=== PATIENT | female | born 1990 | race Caucasian/White ===

== ENCOUNTER 2021-08-10 22:16 | Inpatient (IN) | payer OTHER ==
[~2021-08-10] VITALS: Ht 162.6 cm; Wt 147.4 kg
[2021-08-10 23:48] VITALS: BP 96/63
[2021-08-11] VITALS (13 sets, daily range): BP systolic 94–129; BP diastolic 46–91
[2021-08-11 00:36] LABS: HEMATOCRIT 39.8 % (37.0-47.0); MEAN CELL VOLUME 81.6 fl (81.0-99.0); MEAN CORPUSCULAR HGB 25.2 pg (27.0-31.0); MEAN CORPUSCULAR HGB CONC 30.9 g/dl (33.0-37.0); MEAN PLATELET VOLUME 10.1 fl (9.6-12.3); PLATELET COUNT AUTOMATED 246 10*3/uL (130-400); RED BLOOD COUNT 4.88 10*6/uL (4.10-5.10); RED CELL DISTRI WIDTH 13.9 % (0-14.5); WHITE BLOOD COUNT 6.1 10*3/uL (4.8-10.8)
[2021-08-11 00:51] LABS: ALBUMIN 2.4 gm/dl (3.1-4.5); ALKALINE PHOSPHATASE 97 U/L (45-117); BUN 12 mg/dl (7-24); CHLORIDE 101 mmol/L (98-107); CREATININE 0.68 mg/dL (0.55-1.02); POTASSIUM 3.5 mmol/L (3.5-5.1); SGOT/AST 82 IU/L (3-35); SGPT/ALT 98 U/L (12-78); SODIUM 136 mmol/L (136-145); TOTAL PROTEIN 6.9 gm/dL (6.4-8.2)
[2021-08-11 01:06] LABS: ATYPICAL LYMPHS 2 % (0-0); BURR CELLS FEW; PLATELET SUFFICIENCY NORMAL (NORMAL); TOTAL CELLS COUNTED 100 #CELLS
[2021-08-11 02:52] LABS: ABG BASE EXCESS 7.3 mmol/L (-2.0-2.0); ARTERIAL BLOOD GAS PH 7.496 (7.35-7.45); ARTERIAL BLOOD GAS PO2 71.1 (80-90)
[2021-08-11 05:50] LABS: ALBUMIN 2.3 gm/dl (3.1-4.5); BUN 12 mg/dl (7-24); CHLORIDE 101 mmol/L (98-107); CHOLESTEROL 71 mg/dL (<200); CREATININE 0.64 mg/dL (0.55-1.02); POTASSIUM 3.5 mmol/L (3.5-5.1); SGOT/AST 71 IU/L (3-35); SGPT/ALT 96 U/L (12-78); SODIUM 136 mmol/L (136-145); TRIGLYCERIDES 65 mg/dl (<150)
[2021-08-11 05:52] LABS: ALKALINE PHOSPHATASE 95 U/L (45-117); TOTAL PROTEIN 6.8 gm/dL (6.4-8.2)
[2021-08-11 05:58] LABS: LDL CHOLESTEROL 21 mg/dL (9-159); THYROID STIM HORMONE (HS) 0.188 uIU/ml (0.358-4.75)
[2021-08-11 06:05] LABS: MEAN CELL VOLUME 81.4 fl (81.0-99.0); MEAN CORPUSCULAR HGB 25.5 pg (27.0-31.0); MEAN CORPUSCULAR HGB CONC 31.3 g/dl (33.0-37.0); MEAN PLATELET VOLUME 10.6 fl (9.6-12.3); PLATELET COUNT AUTOMATED 233 10*3/uL (130-400); RED BLOOD COUNT 4.79 10*6/uL (4.10-5.10); WHITE BLOOD COUNT 4.2 10*3/uL (4.8-10.8)
[2021-08-11 06:42] LABS: PLATELET SUFFICIENCY NORMAL (NORMAL); TOTAL CELLS COUNTED 100 #CELLS
[2021-08-11 06:43] LABS: BURR CELLS FEW; OVALOCYTES FEW; POLYCHROMASIA SLIGHT
[2021-08-11 06:44] LABS: ACT PARTIAL THROMBO TIME 29.3 SECONDS (20.0-32.1)
[2021-08-11 07:35] LABS: VITAMIN D, 25-HYDROXY 21.2 ng/mL (30-100)
[2021-08-11 09:16] LABS: CPK 136 U/L (26-192); LDH 501 U/L (84-246)
[2021-08-12 02:00] VITALS: BP 140/58
[2021-08-12 06:22] LABS: ALBUMIN 2.3 gm/dl (3.1-4.5); BUN 17 mg/dl (7-24); CHLORIDE 105 mmol/L (98-107); CREATININE 0.58 mg/dL (0.55-1.02); POTASSIUM 3.8 mmol/L (3.5-5.1); SGOT/AST 68 IU/L (3-35); SGPT/ALT 96 U/L (12-78); SODIUM 139 mmol/L (136-145)
[2021-08-12 06:25] LABS: ALKALINE PHOSPHATASE 95 U/L (45-117); FREE T4 2.09 ng/dl (0.76-1.46); TOTAL PROTEIN 6.4 gm/dL (6.4-8.2)
[2021-08-12 07:05] LABS: HEMATOCRIT 37.4 % (37.0-47.0); MEAN CELL VOLUME 82.2 fl (81.0-99.0); MEAN CORPUSCULAR HGB 25.5 pg (27.0-31.0); MEAN PLATELET VOLUME 10.5 fl (9.6-12.3); PLATELET COUNT AUTOMATED 284 10*3/uL (130-400); RED BLOOD COUNT 4.55 10*6/uL (4.10-5.10); RED CELL DISTRI WIDTH 13.7 % (0-14.5); WHITE BLOOD COUNT 5.6 10*3/uL (4.8-10.8)
[2021-08-12 08:00] VITALS: BP 117/71
[2021-08-12 08:50] LABS: ATYPICAL LYMPHS 3 % (0-0); PLATELET SUFFICIENCY NORMAL (NORMAL); TOTAL CELLS COUNTED 100 #CELLS
[2021-08-12 12:00] VITALS: BP 124/68
[2021-08-12 20:00] VITALS: BP 130/81
[2021-08-13] VITALS: BP 128/70
[2021-08-13 07:58] VITALS: BP 126/85
[2021-08-13 12:00] VITALS: BP 123/68
[2021-08-13 16:00] VITALS: BP 121/71
[2021-08-13 20:00] VITALS: BP 131/83
[2021-08-14] VITALS: BP 127/82
[2021-08-14 07:03] LABS: BASO % 0.2 % (0.0-1.0); EOS % 0.1 % (1.0-4.0); HEMATOCRIT 38.2 % (37.0-47.0); LYMPH # 1.5 10*3/uL (1.3-4.4); LYMPH % 16.6 % (27.0-41.0); MEAN CELL VOLUME 80.8 fl (81.0-99.0); MEAN CORPUSCULAR HGB 25.8 pg (27.0-31.0); MEAN CORPUSCULAR HGB CONC 31.9 g/dl (33.0-37.0); MEAN PLATELET VOLUME 10.4 fl (9.6-12.3); MONO # 1.2 10*3/uL (0.1-1.0); NEUT # 6.2 10*3/uL (2.3-7.9); NEUT % 67.5 % (47.0-73.0); PLATELET COUNT AUTOMATED 371 10*3/uL (130-400); RED BLOOD COUNT 4.73 10*6/uL (4.10-5.10); RED CELL DISTRI WIDTH 13.5 % (0-14.5); WHITE BLOOD COUNT 9.1 10*3/uL (4.8-10.8)
[2021-08-14 07:27] LABS: CHLORIDE 107 mmol/L (98-107); POTASSIUM 3.8 mmol/L (3.5-5.1); SGOT/AST 27 IU/L (3-35); SODIUM 139 mmol/L (136-145)
[2021-08-14 07:37] LABS: ALBUMIN 2.5 gm/dl (3.1-4.5); ALKALINE PHOSPHATASE 88 U/L (45-117); BUN 13 mg/dl (7-24); CPK 58 U/L (26-192); CREATININE 0.55 mg/dL (0.55-1.02); SGPT/ALT 104 U/L (12-78); TOTAL PROTEIN 6.2 gm/dL (6.4-8.2)
[2021-08-14 08:23] VITALS: BP 118/68
[2021-08-14 12:00] VITALS: BP 128/80
[2021-08-14 16:00] VITALS: BP 136/85
[2021-08-14 20:00] VITALS: BP 142/90
[2021-08-15] VITALS: BP 127/72
[2021-08-15 07:00] LABS: MEAN CORPUSCULAR HGB 25.4 pg (27.0-31.0); MEAN PLATELET VOLUME 10.5 fl (9.6-12.3); PLATELET COUNT AUTOMATED 372 10*3/uL (130-400); RED BLOOD COUNT 4.88 10*6/uL (4.10-5.10); RED CELL DISTRI WIDTH 13.7 % (0-14.5); WHITE BLOOD COUNT 10.6 10*3/uL (4.8-10.8)
[2021-08-15 07:33] LABS: CHLORIDE 105 mmol/L (98-107); POTASSIUM 3.5 mmol/L (3.5-5.1); SODIUM 136 mmol/L (136-145)
[2021-08-15 07:41] LABS: ALBUMIN 2.4 gm/dl (3.1-4.5); ALKALINE PHOSPHATASE 80 U/L (45-117); BUN 13 mg/dl (7-24); CREATININE 0.71 mg/dL (0.55-1.02); SGOT/AST 29 IU/L (3-35); SGPT/ALT 79 U/L (12-78); TOTAL PROTEIN 5.9 gm/dL (6.4-8.2)
[2021-08-15 07:44] LABS: CPK 32 U/L (26-192)
[2021-08-15 08:00] VITALS: BP 127/82
[2021-08-15 08:49] LABS: PLATELET SUFFICIENCY NORMAL (NORMAL); TOTAL CELLS COUNTED 100 #CELLS
[2021-08-15 12:00] VITALS: BP 125/92
[2021-08-15] MEDS ORDERED: VITAMIN D350 MC2 PO (14:18)
[2021-08-15] MEDS ORDERED: DECADRON6 M1 PO (14:19)
[2021-08-15] MEDS ORDERED: ZITHROMAX250 MG PO (14:19)
[2021-08-15 16:00] VITALS: BP 97/93
== END 2021-08-15 17:37 | disposition home or self-care (01) | DRG 871 ==
LOC: ED 22:16 → EDHOLD 08-11 02:11 → 4E 08-11 02:11
PROVIDERS: Emergency Medicine; Hospitalist; Student in an Organized Health Care Education/Training Program; ADMIT Family Medicine; ATTEND Family Medicine
PROC: 5A0935A Assistance with Respiratory Ventilation, Less than 24 Consecutive Hours, High Flow/Velocity Cannula (ICD-10-PCS; principal; 2021-08-11)
PROC: 5A09357 Assistance with Respiratory Ventilation, Less than 24 Consecutive Hours, Continuous Positive Airway Pressure (ICD-10-PCS; 2021-08-11)
PROC: XW033E5 Introduction of Remdesivir Anti-infective into Peripheral Vein, Percutaneous Approach, New Technology Group 5 (ICD-10-PCS; 2021-08-11)
PROC: 5A0935A Assistance with Respiratory Ventilation, Less than 24 Consecutive Hours, High Flow/Velocity Cannula (ICD-10-PCS; 2021-08-12)
PROC: 5A09357 Assistance with Respiratory Ventilation, Less than 24 Consecutive Hours, Continuous Positive Airway Pressure (ICD-10-PCS; 2021-08-12)
PROC: 5A0935A Assistance with Respiratory Ventilation, Less than 24 Consecutive Hours, High Flow/Velocity Cannula (ICD-10-PCS; 2021-08-13)
PROC: 5A09357 Assistance with Respiratory Ventilation, Less than 24 Consecutive Hours, Continuous Positive Airway Pressure (ICD-10-PCS; 2021-08-13)
PROC: 5A0935A Assistance with Respiratory Ventilation, Less than 24 Consecutive Hours, High Flow/Velocity Cannula (ICD-10-PCS; 2021-08-14)
PROC: 5A0935A Assistance with Respiratory Ventilation, Less than 24 Consecutive Hours, High Flow/Velocity Cannula (ICD-10-PCS; 2021-08-15)
PROC: 5A09357 Assistance with Respiratory Ventilation, Less than 24 Consecutive Hours, Continuous Positive Airway Pressure (ICD-10-PCS; 2021-08-15)
DX: A41.89 Other specified sepsis (principal); U07.1 COVID-19; J12.82 Pneumonia due to coronavirus disease 2019; E43 Unspecified severe protein-calorie malnutrition; J96.01 Acute respiratory failure with hypoxia; R76.9 Abnormal immunological finding in serum, unspecified; E66.09 Other obesity due to excess calories; R74.01 Elevation of levels of liver transaminase levels; E55.9 Vitamin D deficiency, unspecified; Z88.2 Allergy status to sulfonamides